=== PATIENT | female | born 1995 | race Caucasian/White ===

== ENCOUNTER 2017-05-11 17:56 | Emergency (ER) | payer MEDICAID ==
[~2017-05-11] VITALS: Ht 152.4 cm; Wt 66.7 kg
[2017-05-11 23:30] VITALS: BP 143/67
== END 2017-05-11 23:30 | disposition home or self-care (01) ==
LOC: ED 17:56
DX: J02.9 Acute pharyngitis, unspecified (principal)
CPT/HCPCS: 87804; J1100; J8540

== ENCOUNTER 2017-10-15 11:09 | Emergency (ER) | payer MEDICAID ==
[~2017-10-15] VITALS: Ht 152.4 cm; Wt 67.3 kg
[2017-10-15 11:12] VITALS: Ht 152.4 cm; Wt 67.3 kg
[2017-10-15 11:46] VITALS: BP 124/86
== END 2017-10-15 11:46 | disposition home or self-care (01) ==
LOC: ED 11:09
DX: G51.0 Bell's palsy (principal)
CPT/HCPCS: 82962; J7512